=== PATIENT | male | born 1975 | race Caucasian/White ===

== ENCOUNTER 2019-01-21 12:02 | Emergency (ER) | payer BC ==
[~2019-01-21] VITALS: Ht 180.3 cm; Wt 122.5 kg
[2019-01-21] MEDS ORDERED: IV NORMAL SALINE 1,000ML 1,000 ML IV SCH (12:22)
--- NOTE | 2019-01-21 12:26 | PHYS DOC ---
Past History Past Medical History: No Pertinent History Past Surgical History: No Surgical History Smoking: Non-smoker Alcohol Use: Occasionally Drug Use: None Adult General Chief Complaint Chief Complaint: ABDOMINAL PAIN HPI HPI Patient is a 43-year-old male presents with midline abdominal pain inferior to t he umbilicus but a little bit superior to the umbilicus as well. Notes that he has been having to strain with bowel movements. Notes also some stinging with urination at the onset of this 2 days ago which has resolved. Notes decreased urine output. Denies any blood in the stool or urine. No nausea or vomiting. Nothing seems to make the discomfort better or worse. Patient has recently traveled here from [place] for a course. No past surgical history. No overseas travel. Discomfort is moderate in intensity.[] Review of Systems Review of Systems Constitutional: Denies fever or chills [] Eyes: Denies change in visual acuity, redness, or eye pain [] HENT: Denies nasal congestion or sore throat [] Respiratory: Denies cough or shortness of breath [] Cardiovascular: No chest pain or palpitation, no worsening with exertion[] GI: See history of present illness[] : Denies dysuria or hematuria [] Musculoskeletal: Denies back pain or joint pain [] Integument: Denies rash or skin lesions [] Neurologic: Denies headache, focal weakness or sensory changes [] Endocrine: Denies polyuria or polydipsia [] All other systems were reviewed and found to be within normal limits, except as documented in this note. Allergies Allergies Allergies Coded Allergies Type Severity Reaction Last Updated Verified No Known Drug Allergies 01/21/19 No Physical Exam Physical Exam Constitutional: Well developed, well nourished, no acute distress, non-toxic appearance. [] HENT: Normocephalic, atraumatic, bilateral external ears normal, oropharynx moist, no oral exudates, nose normal. [] Eyes: PERRLA, EOMI, conjunctiva normal, no discharge. [] Neck: Normal range of motion, no tenderness, supple, no stridor. [] Cardiovascular:Heart rate regular rhythm, no murmur [] Lungs & Thorax: Bilateral breath sounds clear to auscultation [] Abdomen: Bowel sounds normal, soft, lower abdominal tenderness, no rebound, no guarding, no rigidity, able to sit up and lie back without any difficulty, no masses, no pulsatile masses. [] Skin: Warm, dry, no erythema, no rash. [] Back: No tenderness, no CVA tenderness. [] Extremities: No tenderness, no cyanosis, no clubbing, ROM intact, no edema. [] Neurologic: Alert and oriented X 3, normal motor function, normal sensory function, no focal deficits noted. [] Psychologic: Affect normal, judgement normal, mood normal. [] Current Patient Data Vital Signs Vital Signs Date Time Temp Pulse Resp B/P (MAP) Pulse Ox O2 Delivery O2 Flow Rate FiO2 01/21/19 12:10 99.7 102 20 96 Room Air EKG EKG [] Radiology/Procedures Radiology/Procedures PROCEDURE: CT ABD PELV W/ IV CONTRST ONLY Examination: CT ABD PELV W/ IV CONTRST ONLY History: Lower abdominal pain Comparison/Correlation: None Findings: Axial images of the abdomen and pelvis were obtained following IV IV contrast. Sagittal and coronal reformatted images were provided. Visualized lung bases are clear. Liver, spleen, pancreas, and adrenal glands are normal. Anterior right lower renal pole 1.2 cm diameter hypoenhancing lesion is present. Left renal upper pole 1.7 cm diameter cyst is present. Gallbladder fossa is unremarkable. Appendix is normal. Inflammatory stranding is notable about the mid sigmoid colon. Diverticulosis is present although relatively minimal. No abscess collection. Trace edema is noted along the left pelvic sidewall. Small amount of pelvic free fluid. No enlarged abdominal lymph nodes. Umbilical hernia contains omental fat and a small in size. Urinary bladder is unremarkable. Bony structures are unremarkable. Impression: Inflammatory findings about the mid sigmoid colon. Findings most compatible with acute diverticulitis. No abscess. Pelvic free fluid is presumably inflammatory. [] Course & Med Decision Making Course & Med Decision Making Pertinent Labs and Imaging studies reviewed. (See chart for details) ED course: Patient arrived, was placed in bed, and tolerated exam well. He was transported to and from radiology with any complications. He had improvement in his symptoms with the medications administered. After the return of the laboratory and imaging studies, these were discussed with the patient voiced understanding. He endorsed that he had been eating increased knots since he was here traveling in trying to eat better from his home in [place]. Discussed diet changes due to diverticular disease. Patient voiced understanding. All questions were answered. He was discharged in improved condition. Medical decision making: Patient has diverticulitis without evidence of an obstruction or perforation. There is no evidence of appendicitis, cholecystitis, pancreatitis, oral intake intolerance, nor adequate pain management.[] Dragon Disclaimer Dragon Disclaimer This electronic medical record was generated, in whole or in part, using a voice recognition dictation system. Departure Departure: Impression: Primary Impression: Diverticulitis Disposition: 01 HOME, SELF-CARE Condition: IMPROVED Referrals: [facility] (PCP) Patient Instructions: Diverticulitis Additional Instructions: Follow-up with your regular doctor in 2 days. Return to the ER if worsening pain, unable to tolerate liquids, or any other concerns. In the short-term follow a diverticulitis diet: A diverticulitis diet is a temporary measure to give your digestive system a chance to rest. Oral intake is usually reduced until bleeding and diarrhea subside. Diet details A diverticulitis diet starts with only clear liquids for a few days. Examples of items allowed on a clear liquid diet include: Broth Fruit juices without pulp, such as apple juice Ice chips Ice pops without bits of fruit or fruit pulp Gelatin Water Tea or coffee without cream As you start feeling better, your doctor will recommend that you slowly add low- fiber foods. Examples of low-fiber foods include: Canned or cooked fruits without skin or seeds Canned or cooked vegetables such as green beans, carrots and potatoes (without the skin) Eggs, fish and poultry Refined white bread Fruit and vegetable juice with no pulp Low-fiber cereals Milk, yogurt and cheese White rice, pasta and noodles Scripts Tramadol Hcl (TRAMADOL HCL) 50 Mg Tablet 50 MG PO PRN Q6HRS PRN for PAIN, #20 TAB Prov: ALLEY WELLINGTON DO 01/21/19 Metronidazole (FLAGYL) 500 Mg Tablet 1 TAB PO QID for dverticulitis, #40 TAB Prov: ALLEY WELLINGTON DO 01/21/19 Meloxicam (MELOXICAM) 7.5 Mg Tablet 7.5 MG PO DAILY for PAIN, #20 TAB Prov: LALEY WELLINGTON DO 01/21/19 Hyoscyamine Sulfate (LEVSIN) 0.125 Mg Tablet 0.125 MG PO QID for abdominal pain/cramping, #30 TAB Prov: ALLEY WELLINGTON DO 01/21/19 Sulfamethoxazole/Trimethoprim (BACTRIM DS TABLET) 1 Each Tablet 1 TAB PO BID for diverticulitis, #20 TAB Prov: ALLEY WELLINGTON DO 01/21/19 ALLEY WELLINGTON DO Jan 21, 2019 12:26
[2019-01-21 12:52] LABS: BASO # 0.1 x10^3/uL (0.0-0.2); BASO % 1 % (0-3); EOS % 0 % (0-3); HEMATOCRIT 40.7 % (39.0-53.0); HEMOGLOBIN 13.7 g/dL (13.0-17.5); LYMPH # 1.4 x10^3/uL (1.0-4.8); LYMPH % 8 % (24-48); MEAN CORPUSCULAR HEMOGLOBIN 28 pg (25-35); MEAN CORPUSCULAR HGB CONC 34 g/dL (31-37); MEAN CORPUSCULAR VOLUME 84 fL (79-100); MONO # 1.8 x10^3/uL (0.0-1.1); MONO % 10 % (0-9); NEUT # 15.2 x10^3uL (1.8-7.7); NEUT % 82 % (31-73); PLATELET COUNT 233 x10^3/uL (140-400); RED BLOOD COUNT 4.86 x10^6/uL (4.30-5.70); RED CELL DISTRIBUTION WIDTH 14.7 % (11.5-14.5); WHITE BLOOD COUNT 18.5 x10^3/uL (4.0-11.0)
[2019-01-21 12:59] LABS: BACTERIA,URINE 0 /HPF (0-FEW); BILIRUBIN,URINE NEG (NEG); CLARITY,URINE CLEAR; COLOR,URINE YELLOW; GLUCOSE,URINE NEG (NEG); NITRITE,URINE NEG (NEG); RBC,URINE 0 /HPF (0-2); SQUAMOUS EPITHELIAL CELL,UR OCC /LPF; UROBILINOGEN,URINE 0.2 mg/dL (0.2 mg/dL); WBC,URINE RARE /HPF (0-4)
[2019-01-21] MEDS ORDERED: ONDANSETRON PF 4 MG/2 ML VIAL. IV ONE (13:00)
[2019-01-21] MEDS ORDERED: HYOSCYAMINE 0.125 MG TAB.RAPDIS PO ONE (13:00)
[2019-01-21] MEDS ORDERED: IOHEXOL 300 MG/ML 75 ML VIAL. IV ONE (13:00)
[2019-01-21] MEDS ORDERED: KETOROLAC 30 MG/ML VIAL. IV ONE (13:00)
[2019-01-21 13:04] LABS: ALBUMIN 3.9 g/dL (3.4-5.0); CREATININE 0.9 mg/dL (0.7-1.3); GFR 92.1; POTASSIUM 3.7 mmol/L (3.5-5.1); TOTAL BILIRUBIN 0.8 mg/dL (0.2-1.0); TOTAL PROTEIN 7.7 g/dL (6.4-8.2)
--- NOTE | 2019-01-21 13:17 | RAD ---
Examination: CT ABD PELV W/ IV CONTRST ONLY History: Lower abdominal pain Comparison/Correlation: None Findings: Axial images of the abdomen and pelvis were obtained following IV IV contrast. Sagittal and coronal reformatted images were provided. Visualized lung bases are clear. Liver, spleen, pancreas, and adrenal glands are normal. Anterior right lower renal pole 1.2 cm diameter hypoenhancing lesion is present. Left renal upper pole 1.7 cm diameter cyst is present. Gallbladder fossa is unremarkable. Appendix is normal. Inflammatory stranding is notable about the mid sigmoid colon. Diverticulosis is present although relatively minimal. No abscess collection. Trace edema is noted along the left pelvic sidewall. Small amount of pelvic free fluid. No enlarged abdominal lymph nodes. Umbilical hernia contains omental fat and a small in size. Urinary bladder is unremarkable. Bony structures are unremarkable. Impression: Inflammatory findings about the mid sigmoid colon. Findings most compatible with acute diverticulitis. No abscess. Pelvic free fluid is presumably inflammatory. PQRS Compliance Statement: One or more of the following individualized dose reduction techniques were utilized for this examination: 1. Automated exposure control 2. Adjustment of the mA and/or kV according to patient size 3. Use of iterative reconstruction technique Electronically signed by: Rocky Winter MD (01/21/2019 1:14 PM) [facility]
[2019-01-21 13:27] LABS: % BANDS 2 % (0-9); % LYMPHS 9 % (24-48); % MONOS 11 % (0-10); % SEGS 78 % (35-66)
[2019-01-21 13:28] LABS: PLT ESTIMATE ADEQUATE (ADEQUATE)
[2019-01-21 13:29] VITALS: BP 142/83
[2019-01-21] MEDS ORDERED: MELO7.5T29 PO (13:38)
[2019-01-21] MEDS ORDERED: TRAM50TA PO (13:38)
[2019-01-21] MEDS ORDERED: SULF1TAB24 PO (13:38)
[2019-01-21] MEDS ORDERED: HYOS0.1264 PO (13:38)
[2019-01-21] MEDS ORDERED: METR500T PO (13:38)
== END 2019-01-21 13:43 | disposition home or self-care (01) ==
LOC: ER 12:02
DX: K57.30 Diverticulosis of large intestine without perforation or abscess without bleeding (principal)
CPT/HCPCS: 36415; 74177; 80053; 81001; 83690; 85007; 85025; 96374; 96375; 99285; J1885; J2405; Q9967; J7030